=== PATIENT | female | born 1950 | race Hispanic/Latino ===

== ENCOUNTER 2019-11-18 14:48 | Outpatient (CLI) | payer MEDICARE ==
--- NOTE | 2019-11-18 16:11 | XRay Report ---
CHEST 2 VIEWS INDICATION: mastoid abscess. COMPARISON: FINDINGS: Support devices: A right PICC line tip is in the right atrium Heart: Within normal limits. Pulmonary vasculature: Abnormal. Lungs/pleura: The lungs are normally expanded and clear. No airspace disease or pleural effusion. No pneumothorax. Additional findings: A left total shoulder replacement. IMPRESSION: 1. No acute cardiopulmonary process. Signer Name: Zain Contreras MD Signed: 11/18/2019 4:07 PM Workstation Name: [id number]
[2019-11-18] MEDS ORDERED: fentaNYL DRIP Premix 0 MCG/0 ML BAG IV ONE (17:02)
== END 2019-11-18 14:49 | disposition home or self-care (01) ==
LOC: MAMMO 14:48
PROVIDERS: ATTEND Internal Medicine Infectious Disease
DX: I28.8 Other diseases of pulmonary vessels (principal); H70.009 Acute mastoiditis without complications, unspecified ear; Z95.828 Presence of other vascular implants and grafts
CPT/HCPCS: 71046; J3010